=== PATIENT | female | born 1955 | race Caucasian/White ===

== ENCOUNTER 2018-06-14 20:01 | Emergency (ER) | payer MEDICARE, OTHER ==
[2018-06-14 20:23] VITALS: TEMP 98.8
[2018-06-14] MEDS ORDERED: KETOROLAC TROMETHAMINE INJ 30 MG/ML VIAL IM ONE (20:51)
--- NOTE | 2018-06-14 20:53 | RAD ---
EXAM DESCRIPTION: Wrist,Left 3 Views CLINICAL HISTORY: wooden rack fell on wrist COMPARISON: None FINDINGS: 3 view(s) submitted. No fracture or dislocation is identified. Bone marrow attenuation is unremarkable. No radiopaque foreign body is identified. IMPRESSION: No acute fracture or dislocation. Electronically signed by: Robert Daniel 06/14/2018 8:52 PM [facility]
--- NOTE | 2018-06-14 20:55 | ED.PDOC ---
History of Present Illness - General Chief Complaint: Upper Extremity Injury Stated Complaint: wooden rack fell on left wrist Time Seen by Provider: 06/14/18 20:51 Source: patient, family Exam Limitations: no limitations - History of Present Illness Initial Comments: Patient was helping move a wall bracket when it fell and struck her left wrist. She has pain just proximal to the left wrist on the lateral aspect. It is constant, non-radiating, throbbing, worse with movement, better with rest, denies previous episodes. No other injuries nor symptoms. Timing/Duration: 1-3 hours Severity: moderate Improving Factors: rest Worsening Factors: movement Associated Symptoms: denies symptoms Allergies/Adverse Reactions: Allergies Penicillins Allergy (Verified 06/14/18 20:20) Review of Systems - Review of Systems Constitutional: States: no symptoms reported EENTM: States: no symptoms reported Respiratory: States: no symptoms reported Cardiology: States: no symptoms reported Gastrointestinal/Abdominal: States: no symptoms reported Genitourinary: States: no symptoms reported Musculoskeletal: States: see HPI Skin: States: no symptoms reported Neurological: States: no symptoms reported Endocrine: States: no symptoms reported Past Medical History (General) - Patient Medical History Hx Seizures: No Hx Stroke: Yes Hx Dementia: No Hx Asthma: No Hx of COPD: No Hx Cardiac Disorders: No Hx Congestive Heart Failure: No Hx Pacemaker: No Hx Hypertension: Yes Hx Thyroid Disease: No Hx Diabetes: No Hx Gastroesophageal Reflux: Yes Hx Renal Disease: No Hx Cancer: No Hx of HIV: No Hx Hepatitis C: No Hx MRSA: No Surgical History: appendectomy, cholecystectomy, Hysterectomy - Vaccination History Hx Tetanus, Diphtheria Vaccination: No Hx Influenza Vaccination: No Hx Pneumococcal Vaccination: No - Social History Hx Tobacco Use: Yes - quit in 2009 Hx Alcohol Use: No Family Medical History - Family History Mother Family History: Unknown Physical Exam - Physical Exam General Appearance: Alert Respiratory: lungs clear Cardiovascular/Chest: normal peripheral pulses, regular rate, rhythm Peripheral Pulses: radial,right: 2+, radial,left: 2+ Gastrointestinal/Abdominal: normal bowel sounds, non tender, soft Extremity: other - TTP over distal lateral third of the left forearm over the radius. Patient has 5/5 movement of the fingers but movement of the wrist is not possible due to pain. There is mild edema at the focus of pain. Neurologic: no motor/sensory deficits, alert, normal mood/affect, oriented x 3 Skin Exam: normal color Lymphatic: no adenopathy Progress - Progress Progress: 06/14/18 21:46 Radiographs showed no dislocation nor fracture. Patient was given a wrist splint. Care instructions given. E.R. warnings given. Questions were elicited and answered. Patient voiced understanding and agreement with the plan. Departure - Departure Clinical Impression: Sprain of wrist, left Disposition: Discharge to Home or Self Care Condition: Good Departure Forms: ED Discharge - Pt. Copy, Patient Portal Self Enrollment Instructions: Wrist Sprain (DC) Diet: resume usual diet Activity: increase activity as tolerated Additional Instructions: Ice to the painful area three times per day and as needed for three days. Change to heating pad to the painful area twice per day after three days until healed. Return to activity as tolerated.
[2018-06-14 21:59] VITALS: BP 144/84; O2SAT 96
== END 2018-06-14 21:58 | disposition home or self-care (01) ==
LOC: ER 20:01
DX: S63.502A Unspecified sprain of left wrist, initial encounter (principal); I10 Essential (primary) hypertension; K21.9 Gastro-esophageal reflux disease without esophagitis; Z86.73 Personal history of transient ischemic attack (TIA), and cerebral infarction without residual deficits; W20.8XXA Other cause of strike by thrown, projected or falling object, initial encounter; Z87.891 Personal history of nicotine dependence; Z88.0 Allergy status to penicillin; Y92.9 Unspecified place or not applicable
CPT/HCPCS: 73110; J1885

== ENCOUNTER → 2018-06-15 | Outpatient (CLI) | payer OTHER ==
--- NOTE | 2018-06-15 09:34 | RAD ---
EXAM DESCRIPTION: Pelvis CLINICAL HISTORY: M25.551 COMPARISON: None. TECHNIQUE: AP pelvis FINDINGS: The pelvis is intact. No fracturing is detected. Mild degenerative changes are seen in the pubic symphysis. The proximal femurs are intact. Phleboliths are observed in the right side of the pelvis. Minimal vascular calcification is noted. IMPRESSION: Unremarkable pelvis. Electronically signed by: Inocencio Cormier MD 06/15/2018 9:33 AM [facility]
== END ==
LOC: RAD 08:28
PROVIDERS: ATTEND Orthopaedic Surgery
DX: M25.551 Pain in right hip (principal)

== ENCOUNTER 2018-07-26 12:08 | Emergency (ER) | payer OTHER ==
--- NOTE | 2018-07-26 12:49 | ED.PDOC ---
History of Present Illness - General Chief Complaint: Neck Injury/Pain Stated Complaint: Neck and shoulder discomfort Time Seen by Provider: 07/26/18 12:41 Source: patient Exam Limitations: no limitations - History of Present Illness Initial Comments: Patient presents with upper back pain after a fall two weeks ago. She tripped on a metal water meter cover and landed on her back. The pain is just lateral to the first 4 thoracic vertebrae. Aching in nature. Non-radiating. Worse with movement, better with rest. No associated symptoms. No previous injuries to that area. No other complaints. Timing/Duration: other - three weeks Severity: mild Improving Factors: rest Worsening Factors: movement Associated Symptoms: denies symptoms Allergies/Adverse Reactions: Allergies Penicillins Allergy (Verified 07/26/18 12:33) Home Medications: Ambulatory Orders Donepezil Hydrochloride [Donepezil HCl] 5 mg PO DAILY 06/14/18 Tramadol HCl 50 mg PO Q6H PRN 06/14/18 Zolpidem Tartrate 10 mg PO BEDTIME 06/14/18 cloNAZepam [Klonopin] 0.5 mg PO DAILY PRN 06/14/18 Escitalopram [Lexapro] 20 mg PO DAILY 07/26/18 Montelukast [Singulair] 10 mg PO DAILY 07/26/18 Trazodone HCl 100 mg PO BEDTIME 07/26/18 Review of Systems - Review of Systems Constitutional: States: no symptoms reported EENTM: States: no symptoms reported Respiratory: States: no symptoms reported Cardiology: States: no symptoms reported Gastrointestinal/Abdominal: States: no symptoms reported Genitourinary: States: no symptoms reported Musculoskeletal: States: see HPI Skin: States: no symptoms reported Neurological: States: no symptoms reported Endocrine: States: no symptoms reported Hematologic/Lymphatic: States: no symptoms reported Past Medical History (General) - Patient Medical History Hx Seizures: No Hx Stroke: Yes - 2009 Hx Dementia: No Hx Asthma: No Hx of COPD: No Hx Cardiac Disorders: No Hx Congestive Heart Failure: No Hx Pacemaker: No Hx Hypertension: Yes Hx Thyroid Disease: No Hx Diabetes: No Hx Gastroesophageal Reflux: Yes Hx Renal Disease: No Hx Cancer: No Hx of HIV: No Hx Hepatitis C: No Hx MRSA: No Surgical History: appendectomy, cholecystectomy, tonsillectomy, Hysterectomy, other - Vaccination History Hx Tetanus, Diphtheria Vaccination: No Hx Influenza Vaccination: No Hx Pneumococcal Vaccination: No - Social History Hx Tobacco Use: Yes - Quit 2009 Hx Alcohol Use: No Family Medical History - Family History Mother Family History: Unknown Physical Exam - Physical Exam General Appearance: Alert Eye Exam: bilateral normal Ears, Nose, Throat: normal ENT inspection Neck: non-tender, full range of motion, supple Respiratory: lungs clear, normal breath sounds Cardiovascular/Chest: normal peripheral pulses, regular rate, rhythm Gastrointestinal/Abdominal: normal bowel sounds, non tender, soft Back Exam: other - TTP 3 cm lateral to the third-5th thoracic verebrae. 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3 H Eosinophils % 3.9 Basophils % 1.4 PT 12.0 H INR 1.20 H PTT (SP) 33.6 H Sodium 138 Potassium 3.1 L Chloride 100 L Carbon Dioxide 29 Anion Gap 12.1 BUN 6 L Creatinine 0.83 BUN/Creatinine Ratio 7.2 L Random Glucose 112 H Serum Osmolality 274.0 L Calcium 9.1 Total Bilirubin 0.7 AST 31 ALT 25 Alkaline Phosphatase 106 Serum Total Protein 8.4 H Albumin 3.8 Globulin 4.6 H Albumin/Globulin Ratio 0.[address] showed anterolithesis and retrolithesis of the cervical vertebrae that are probably chronic. No fractures. There was occipital attenuation on the cervical CT so a head CT was performed to rule out acute bleed or recent CVA. There were old CVAs. Neurological exam was normal. GCS 15. Patient's pain improved with Norflex 60 mg IM x one and Toradol 30 mg IM x one. Her potassium was 3.1 so she was given 20 meq po x one. She has an appointment with her pcp in the morning and will inquire about further use of muscle relaxants and potassiu m. Care instructions given. E.R. warnings given. Questions were elicited and answered. The patient voiced understanding and agreement with the plan. Departure - Departure Clinical Impression: Upper back pain, Hypokalemia Disposition: Discharge to Home or Self Care Condition: Good Departure Forms: ED Discharge - Pt. Copy, Patient Portal Self Enrollment Instructions: DI for Neck Pain Diet: resume usual diet Activity: increase activity as tolerated Referrals: OZIEL DUNBAR IV, [employer] [Primary Care Provider] - 1-2 Weeks Home Medications: Ambulatory Orders Donepezil Hydrochloride [Donepezil HCl] 5 mg PO DAILY 06/14/18 Tramadol HCl 50 mg PO Q6H PRN 06/14/18 Zolpidem Tartrate 10 mg PO BEDTIME 06/14/18 cloNAZepam [Klonopin] 0.5 mg PO DAILY PRN 06/14/18 Escitalopram [Lexapro] 20 mg PO DAILY 07/26/18 Montelukast [Singulair] 10 mg PO DAILY 07/26/18 Trazodone HCl 100 mg PO BEDTIME 07/26/18 Additional Instructions: Keep your appointment with your regular doctor in the morning. Ask about future use of muscle relaxants and potassium supplements. Apply heat to the painful area twice per day until healed. Return to your regular doctor if pain lasts more than two weeks.
--- NOTE | 2018-07-26 13:52 | RAD ---
EXAM DESCRIPTION: Thoracic Spine w/Obliques CLINICAL HISTORY: pain after fall COMPARISON: None FINDINGS: Five view(s) submitted. No fracture or dislocation is identified. Bone marrow attenuation is unremarkable. No radiopaque foreign body is identified. IMPRESSION: No acute fracture or dislocation. Electronically signed by: Robert Daniel 07/26/2018 1:49 PM [facility]
--- NOTE | 2018-07-26 13:54 | RAD ---
PROCEDURE: XR Cervical Spine, 4 or 5 Views CLINICAL INDICATION: The patient is 63 years years old, Female; pain after fall TECHNIQUE: Frontal, lateral and oblique views of the cervical spine. COMPARISON: No relevant prior studies available. FINDINGS: VERTEBRAE: There is mild reversal of the cervical lordosis centered at C5 associated with approximately 3 mm of anterolisthesis of C4 relative to C5, chronicity uncertain. There is no evidence of acute fracture, dislocation or osseous destruction. Vertebral body heights are maintained. DISC SPACES AND NEURAL FORAMINA: There is moderate facet arthropathy on the left at C4-5. There is moderate narrowing of the disc spaces at C5-6 and C6-7 with ossification in the anterior longitudinal ligament suggesting diffuse idiopathic skeletal hyperostosis as well as degenerative disc disease. Other disc heights are maintained Suspect severe neural foraminal encroachment on the left at C3-4, C4-5 and C5-6. SOFT TISSUES: The prevertebral soft tissues are normal. The prevertebral soft tissues are normal. DENTAL: The maxilla is edentulous and only the incisors, canines and lower right bicuspid remain in the mandible. LUNG APICES: The lung apices are clear. OTHER FINDINGS: None Visualized maxillary sinuses and mastoids appear clear. IMPRESSION: There is mild reversal of the cervical lordosis centered at C5 associated with approximately 3 mm of anterolisthesis of C4 relative to C5, chronicity uncertain. CT cervical spine is recommended if clinically indicated. Electronically signed by: More Oro MD 07/26/2018 1:51 PM [employer]
[2018-07-26] MEDS ORDERED: KETOROLAC TROMETHAMINE INJ 30 MG/ML VIAL IM ONE (14:29)
[2018-07-26] MEDS ORDERED: ORPHENADRINE CITRATE 30 MG/ML AMP IM ONE (14:29)
--- NOTE | 2018-07-26 14:52 | CT ---
PROCEDURE: Thoracic Spine CLINICAL HISTORY: 63 years ,Female ,pain at T4-7 COMPARISON: None. TECHNIQUE: Contiguous axial images obtained through the thoracic spine without IV contrast. Coronal and sagittal reformatted images obtained. This exam was performed according to our department optimization program which includes automated exposure control, adjustment of the mA and/or kv according to patient size and/or use of iterative reconstruction technique. FINDINGS: There are degenerative changes diffusely, mild. Multilevel posterior disc osteophyte complexes are present. These are mild to moderate. Vertebral body alignment unremarkable. No acute thoracic spine fractures. IMPRESSION: No acute thoracic spinal fracture is identified. . Electronically signed by: Robert Daniel 07/26/2018 2:49 PM [facility]
--- NOTE | 2018-07-26 15:02 | CT ---
EXAM DESCRIPTION: CT CERVICAL SPINE CLINICAL HISTORY: questionable findings on plain radiographs COMPARISON: Plain films same day. TECHNIQUE: Contiguous axial images of the cervical spine were obtained followed by reconstruction images.This exam was performed according to our departmental dose-optimization program, which includes automated exposure control, adjustment of the mA and/or kV according to patient size and/or use of iterative reconstruction technique. FINDINGS: There is poorly defined decreased attenuation in the right occipital lobe medial aspect, but detail is limited. There are bony degenerative changes. Reversal of the normal lordotic curvature of the mid cervical spine is again seen. There is anterior subluxation of the right mandibular condylar head. No prevertebral soft tissue swelling. There are small amounts of gas throughout the esophagus. There is grade 1 anterolisthesis of C4 on C5 and grade 1 retrolisthesis of C5 on C6. There is moderate height loss of the C3-4 and C5-6 and C6-7 discs. There is no acute fracture or subluxation. IMPRESSION: Encephalomalacia/decreased attenuation in the right occipital lobe but detail is limited. No acute fracture or subluxation. Electronically signed by: Robert Daniel 07/26/2018 2:59 PM [facility]
--- NOTE | 2018-07-26 16:13 | CT ---
EXAM DESCRIPTION: CT Head, noncontrast CLINICAL HISTORY: 63 years Female fall, on Plavix for prior CVA COMPARISON: None TECHNIQUE: Noncontrast axial scans of the brain were obtained. Sagittal and coronal reformatted images were performed. This exam was performed according to our departmental dose-optimization program, which includes automated exposure control, adjustment of the mA and/or kV according to patient size and/or use of iterative reconstruction technique. FINDINGS: There is no evidence of acute intracranial hemorrhage, extracerebral fluid collection, hydrocephalus, midline shift, obvious mass effect, or major territorial infarction. There is slight scattered prominence of cortical sulci and the sylvian fissures. A small area of decreased attenuation is noted in the medial right occipital lobe, consistent with an old infarct. There also appears to be a tiny hypodensity consistent with an old infarct in the anterior left thalamic region. Fernandes-white distinction is generally preserved. There are vascular calcifications at the base of the brain. The bony calvarium appears intact, with perhaps mild hyperostosis frontalis interna. Visualized paranasal sinuses and mastoid air cells appear clear. The frontal sinuses are hypoplastic. IMPRESSION: No evidence of acute intracranial hemorrhage. 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
[2018-07-26] MEDS ORDERED: POTASSIUM CHLORIDE 20 MEQ TAB PO ONE (17:08)
[2018-07-26 17:36] VITALS: BP 147/76; TEMP 97.2; O2SAT 95
== END 2018-07-26 17:35 | disposition home or self-care (01) ==
LOC: ER 12:08
DX: M54.6 Pain in thoracic spine (principal); E87.6 Hypokalemia; R93.7 Abnormal findings on diagnostic imaging of other parts of musculoskeletal system; M47.812 Spondylosis without myelopathy or radiculopathy, cervical region; I10 Essential (primary) hypertension; K21.9 Gastro-esophageal reflux disease without esophagitis; Z86.73 Personal history of transient ischemic attack (TIA), and cerebral infarction without residual deficits; Z87.891 Personal history of nicotine dependence
CPT/HCPCS: 36415; 70450; 72050; 72072; 72125; 72128; 80053; 85025; 85610; 85730; J1885; J2360

== ENCOUNTER → 2019-02-23 | Outpatient (CLI) | payer OTHER ==
--- NOTE | 2019-02-24 08:20 | US ---
EXAM DESCRIPTION: Carotid Duplex CLINICAL HISTORY: OCCLUSIVE DISEASE COMPARISON: None Available. TECHNIQUE: Carotid Doppler ultrasound FINDINGS: Right Submitted images show moderate calcified plaque at the right carotid bifurcation. The following flow velocities were obtained: Common carotid artery peak systolic flow velocity measures 63 centimeters per second. Internal carotid artery peak systolic flow velocity measures 64-79 centimeters per second. External carotid artery peak systolic flow velocity measures 147 centimeters per second. This would indicate mild to moderate proximal stenosis. Flow in the right vertebral artery is antegrade. The right internal carotid to common carotid peak systolic flow velocity ratio equals 1.3 which is normal. Left Submitted images show calcified plaque in the upper left CCA and at the left carotid bifurcation. The following flow velocities were obtained: Common carotid artery peak systolic flow velocity measures 80 centimeters per second. Internal carotid artery peak systolic flow velocity measures 49-67 centimeters per second. External carotid artery peak systolic flow velocity measures 129 centimeters per second. This is consistent with mild proximal stenosis. Flow in the left vertebral artery is antegrade. The left internal carotid to common carotid peak systolic flow velocity ratio of 0.8 is normal. IMPRESSION: Elevated flow velocities in the external carotid arteries bilaterally consistent with mild to moderate proximal stenoses. No significant flow velocity elevation in the right or left common carotid or internal carotid arteries. Antegrade flow in the vertebral arteries. Electronically signed by: Kael Ramírez MD 02/24/2019 8:18 AM CDT
== END ==
LOC: US 11:14
PROVIDERS: ATTEND Internal Medicine Interventional Cardiology
DX: I65.23 Occlusion and stenosis of bilateral carotid arteries (principal)

== ENCOUNTER 2019-03-26 18:49 | Emergency (ER) | payer OTHER ==
[2019-03-26] MEDS ORDERED: ASPIRIN TABLET 325 MG TAB PO ONE (19:04)
[2019-03-26] MEDS ORDERED: ALUM & MAG HYDROX-SIMETHICONE 30 ML, LIDOCAINE VISCOUS 2% 15 ML PO ONE ×2 (19:04)
[2019-03-26] MEDS ORDERED: HYDROcodone 5MG/APAP 325MG 1 EA TAB PO ONE (19:04)
[2019-03-26] MEDS ORDERED: LIDOCAINE HCL 2% (MOUTH-THROAT) 15 ML UD ONE (19:11)
[2019-03-26] MEDS ORDERED: ALUM & MAG HYDROX-SIMETHICONE 30 ML UD ONE (19:11)
[2019-03-26 19:26] VITALS: TEMP 98.2; O2SAT 97
[2019-03-26] MEDS ORDERED: POTASSIUM CHLORIDE ELIXIR 20 MEQ/15 ML UD PO ONE (20:13)
--- NOTE | 2019-03-26 20:13 | RAD ---
EXAM DESCRIPTION: Chest,2 Views CLINICAL HISTORY: 64 years Female chest pain 24 hours COMPARISON: None TECHNIQUE: Two view study of the chest was performed. FINDINGS: Cardiac size is within normal limits. Central vessels are not increased. No infiltrates or effusions seen. No consolidation. No pneumothorax. IMPRESSION: No active disease. Electronically signed by: Philomena Ayers MD 03/26/2019 8:11 PM CDT
--- NOTE | 2019-03-26 20:20 | ED.PDOC ---
History of Present Illness - General Chief Complaint: Chest Pain/[place] Stated Complaint: chest pains Time Seen by Provider: 03/26/19 19:03 Source: patient Exam Limitations: no limitations - History of Present Illness Initial Comments: the patient is a 64-year-old female presenting to the emergency room secondary to chest pain that is essentially the left sternal border present for the last 24 hours. He has made a little bit worse with movement. It is completely reproduced with palpation. No shortness of breath. No palpitations. It is not made worse with aerobic activity. No history of any cardiac problems. No syncope or near syncope. No palpitations. She does have long-standing history of gastritis. Timing/Duration: 24 hours Severity: moderate Improving Factors: immobilization Worsening Factors: movement, other - palpation Associated Symptoms: chest pain Allergies/Adverse Reactions: Allergies Penicillins Allergy (Verified 07/26/18 12:33) Home Medications: Ambulatory Orders Donepezil Hydrochloride [Donepezil HCl] 5 mg PO DAILY 06/14/18 Tramadol HCl 50 mg PO Q6H PRN 06/14/18 Zolpidem Tartrate 10 mg PO BEDTIME 06/14/18 cloNAZepam [Klonopin] 0.5 mg PO DAILY PRN 06/14/18 Escitalopram [Lexapro] 20 mg PO DAILY 07/26/18 Montelukast [Singulair] 10 mg PO DAILY 07/26/18 Trazodone HCl 100 mg PO BEDTIME 07/26/18 Acetaminophen W/ Codeine [Tylenol W/ CODEINE #3] 1 ea PO Q8HR PRN #6 10/25/18 Tobramycin Sulf 0.3 % Opht Eva [Tobrex Opthalmic Solution] 0.3 % RIGHT_EYE Q4HR 5 Days #1 bttl 10/25/18 Review of Systems - Review of Systems Constitutional: States: no symptoms reported EENTM: States: no symptoms reported Respiratory: States: no symptoms reported Cardiology: States: chest pain Gastrointestinal/Abdominal: States: no symptoms reported Genitourinary: States: no symptoms reported Musculoskeletal: States: no symptoms reported Skin: States: no symptoms reported Neurological: States: no symptoms reported Endocrine: States: no symptoms reported All other Systems: No Change from Baseline Past Medical History (General) - Patient Medical History Hx Seizures: No Hx Stroke: Yes - 2009 Hx Dementia: No Hx Asthma: No Hx of COPD: No Hx Cardiac Disorders: No Hx Congestive Heart Failure: No Hx Pacemaker: No Hx Hypertension: Yes Hx Thyroid Disease: No Hx Diabetes: No Hx Gastroesophageal Reflux: Yes Hx Renal Disease: No Hx Cancer: No Hx of HIV: No Hx Hepatitis C: No Hx MRSA: No Surgical History: appendectomy, cholecystectomy, tonsillectomy, other - Vaccination History Hx Tetanus, Diphtheria Vaccination: No Hx Influenza Vaccination: No Hx Pneumococcal Vaccination: No - Social History Hx Tobacco Use: No Hx Alcohol Use: No Hx Substance Use: No Hx Substance Use Treatment: No Hx Depression: No - Female History Patient : No Family Medical History - Family History Mother Family History: Unknown Physical Exam - Physical Exam General Appearance: Alert, Comfortable, No apparent distress Eye Exam: bilateral normal Ears, Nose, Throat: hearing grossly normal, normal ENT inspection Neck: full range of motion, supple Respiratory: lungs clear, normal breath sounds, no respiratory distress, no accessory muscle use, other - chest wall is tender to the left sternal border. 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 It has been present and constant for the last 24 hours, and is reproducible with palpation. This appears to be musculoskeletal in nature. EKG, lab work and chest x-ray are reassuring. The patient can use Motrin with food 2-3 times daily for the next few days. Topical heat may also help. Stretching exercises may also help. I do want her to follow-up with her primary care doctor in 3-5 days for reevaluation. ER warnings were given. john patel [id number] - Results/Orders Results/Orders: 03/26/19 19:03 EKG showed normal sinus rhythm at 61 bpm. Normal axis. Normal R-wave progression. No ST segment or T-wave changes indicative of acute ischemia. Normal QT interval. Chest x-ray shows no acute pathology. Laboratory Results - last 24 hr 03/26/19 03/26/19 03/26/19 19:05 19:05 19:05 WBC 8.9 RBC 4.71 Hgb 13.8 Hct 40.8 MCV 86.6 MCH 29.3 MCHC 33.8 RDW 13.8 Plt Count 237 MPV 8.6 Absolute Neuts (auto) 3.60 Absolute Lymphs (auto) 4.20 H Absolute Monos (auto) 0.70 Absolute Eos (auto) 0.30 Absolute Basos (auto) 0.10 Neutrophils % 40.1 L Lymphocytes % 47.0 Monocytes % 8.2 Eosinophils % 3.3 Basophils % 1.4 PT 12.1 H INR 1.21 H PTT (SP) 29.8 Sodium 141 Potassium 3.3 L Chloride 104 Carbon Dioxide 25 Anion Gap 15.3 BUN 6 L Creatinine 0.78 BUN/Creatinine Ratio 7.7 L Random Glucose 98 Serum Osmolality 278.8 Calcium 8.9 Magnesium 1.9 Total Bilirubin 0.6 AST 28 ALT 19 Alkaline Phosphatase 88 Creatine Kinase 42 CK-MB (CK-2) 0.6 Troponin I < 0.02 B-Natriuretic Peptide 17.2 Serum Total Protein 7.5 Albumin 3.9 Globulin 3.6 H Albumin/Globulin Ratio 1.1 Departure - Departure Clinical Impression: Musculoskeletal chest pain Disposition: Discharge to Home or Self Care Condition: Fair Departure Forms: ED Discharge - Pt. Copy, Patient Portal Self Enrollment Instructions: Chest Pain That Is Not Caused by the Heart (DC) Diet: regular diet Activity: increase activity as tolerated Referrals: OZIEL DUNBAR IV, POWER BRAKE OPERATOR [Primary Care Provider] - 1-2 Weeks Home Medications: Ambulatory Orders Donepezil Hydrochloride [Donepezil HCl] 5 mg PO DAILY 06/14/18 Tramadol HCl 50 mg PO Q6H PRN 06/14/18 Zolpidem Tartrate 10 mg PO BEDTIME 06/14/18 cloNAZepam [Klonopin] 0.5 mg PO DAILY PRN 06/14/18 Escitalopram [Lexapro] 20 mg PO DAILY 07/26/18 Montelukast [Singulair] 10 mg PO DAILY 07/26/18 Trazodone HCl 100 mg PO BEDTIME 07/26/18 Acetaminophen W/ Codeine [Tylenol W/ CODEINE #3] 1 ea PO Q8HR PRN #6 10/25/18 Tobramycin Sulf 0.3 % Opht Eva [Tobrex Opthalmic Solution] 0.3 % RIGHT_EYE Q4HR 5 Days #1 bttl 10/25/18 Additional Instructions: the patient's a 64-year-old female presenting to the emergency room with left parasternal chest pain. It has been present and constant for the last 24 hours, and is reproducible with palpation. This appears to be musculoskeletal in nature. EKG, lab work and chest x-ray are reassuring. The patient can use Motrin with food 2-3 times daily for the next few days. Topical heat may also help. Stretching exercises may also help. I do want her to follow-up with her primary care doctor in 3-5 days for reevaluation. ER warnings were given.
[2019-03-26 20:35] VITALS: BP 153/90
== END 2019-03-26 20:36 | disposition home or self-care (01) ==
LOC: ER 18:49
DX: R07.89 Other chest pain (principal); I10 Essential (primary) hypertension; K21.9 Gastro-esophageal reflux disease without esophagitis; Z86.73 Personal history of transient ischemic attack (TIA), and cerebral infarction without residual deficits; Z79.899 Other long term (current) drug therapy; Z88.0 Allergy status to penicillin

== ENCOUNTER 2019-10-10 19:16 | Emergency (ER) | payer OTHER ==
[2019-10-10 19:38] VITALS: O2SAT 99
[2019-10-10] MEDS ORDERED: CLINDAMYCIN PHOSPHATE 150 MG/ML VIAL IM ONE (19:50)
[2019-10-10] MEDS ORDERED: CLINDAMYCIN HCL CAP (ER DISP) 150 MG CAP PO ONE (19:50)
[2019-10-10] MEDS ORDERED: ONDANSETRON ODT 8 MG TAB SL ONE (19:53)
[2019-10-10] MEDS ORDERED: HYDROcodone 5MG/APAP 325MG 1 EA TAB PO ONE (19:54)
--- NOTE | 2019-10-10 20:25 | ED.PDOC ---
History of Present Illness - General Chief Complaint: Dental/Mouth Stated Complaint: bottom left mouth pain Time Seen by Provider: 10/10/19 19:28 Source: patient, RN notes reviewed, Vital Signs reviewed, family - HusbandHusband Exam Limitations: no limitations - History of Present Illness Initial Comments: Patient is a 64-year-old white female who presents with complaints of left lower jaw pain and swelling. This is been ongoing x1 day. The pain is throbbing in nature. Is moderate in intensity. Is worse with cold liquids or trying to chew. Better with warm liquid. It is nonradiating. It is worse with palpation. Timing/Duration: abrupt, yesterday Severity: moderate EENT Location: mouth Prearrival Treatment: no prearrival treatment Improving Factors: other - Warm fluid Worsening Factors: cold therapy, other - Palpation Associated Symptoms: facial pain/swelling, poor fluid intake, poor solids intake Allergies/Adverse Reactions: Allergies Penicillins Allergy (Verified 10/10/19 19:38) Home Medications: Ambulatory Orders Donepezil Hydrochloride [Donepezil HCl] 5 mg PO DAILY 06/14/18 Tramadol HCl 50 mg PO Q6H PRN 06/14/18 Zolpidem Tartrate 10 mg PO BEDTIME 06/14/18 cloNAZepam [Klonopin] 0.5 mg PO DAILY PRN 06/14/18 Escitalopram [Lexapro] 20 mg PO DAILY 07/26/18 Montelukast [Singulair] 10 mg PO DAILY 07/26/18 Trazodone HCl 100 mg PO BEDTIME 07/26/18 Acetaminophen W/ Codeine [Tylenol W/ CODEINE #3] 1 ea PO Q8HR PRN #6 10/25/18 Tobramycin Sulf 0.3 % Opht Eva [Tobrex Opthalmic Solution] 0.3 % RIGHT_EYE Q4HR 5 Days #1 bttl 10/25/18 Acetaminophen W/ Codeine [Tylenol W/ CODEINE #3] 1 ea PO Q6H #6 10/10/19 Clindamycin HCl [Clindamycin Hydrochloride] 300 mg PO Q6H #28 cap 10/10/19 Review of Systems - Review of Systems Constitutional: States: no symptoms reported, see HPI. Denies: chills, fever EENTM: States: see HPI, mouth pain, mouth swelling Respiratory: States: no symptoms reported Cardiology: States: no symptoms reported Gastrointestinal/Abdominal: States: no symptoms reported Genitourinary: States: no symptoms reported Musculoskeletal: States: no symptoms reported Skin: States: no symptoms reported Neurological: States: anxiety Endocrine: States: no symptoms reported Hematologic/Lymphatic: States: no symptoms reported All other Systems: No Change from Baseline Past Medical History (General) - Patient Medical History Hx Seizures: No Hx Stroke: Yes - 2009 Hx Dementia: No Hx Asthma: No Hx of COPD: No Hx Cardiac Disorders: Yes - "weak heart" Hx Congestive Heart Failure: No Hx Pacemaker: No Hx Hypertension: Yes Hx Thyroid Disease: No Hx Diabetes: No Hx Gastroesophageal Reflux: Yes Hx Renal Disease: No Hx Cancer: No Hx of HIV: No Hx Hepatitis C: No Hx MRSA: No Surgical History: appendectomy, cholecystectomy, tonsillectomy, Hysterectomy - Vaccination History Hx Tetanus, Diphtheria Vaccination: No Hx Influenza Vaccination: No Hx Pneumococcal Vaccination: No - Social History Hx Tobacco Use: No Hx Alcohol Use: No Hx Substance Use: No Hx Substance Use Treatment: No Hx Depression: No - Female History Patient : No Family Medical History - Family History Mother Family History: Unknown Physical Exam - Physical Exam General Appearance: Alert, Anxious, Obvious distress, Unkempt, Well Developed, Well Hydrated, Well Nourished Eye Exam: bilateral normal Ear Exam: bilateral ear: auricle normal Nasal Exam: normal inspection Throat Exam: dental tenderness, mandibular swelling - Left Neck: non-tender, full range of motion, supple, normal inspection Cardiovascular/Respiratory: regular rate, rhythm, no M/R/G, normal peripheral pulses, no JVD, normal breath sounds Abdominal Exam: non-tender, no organomegaly 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 Progress - Progress Progress: Differential diagnosis: Dental abscess, facial cellulitis, impacted tooth, jaw fracture among others. 10/10/19 20:29 Patient improved after the pain medicine and taking her home anxiety medications. Patient with presumed oral abscess. Patient started on IM clindamycin and p.o. clindamycin. Plan on discharge home with prescriptions for clindamycin and Tylenol with codeine. I discussed this plan of care with the patient and her . They voiced understanding of the need to follow-up with a dentist in the next day or 2. They agree with the plan of care. Matthew Mota M.D. #[id number] Departure - Departure Clinical Impression: Facial cellulitis, Mandible pain, Dental abscess Time of Disposition: 20:31 Disposition: Discharge to Home or Self Care Condition: Good Departure Forms: ED Discharge - Pt. Copy, Patient Portal Self Enrollment Instructions: DI for Mouth Pain, Tooth Abscess (DC), Cellulitis (Skin Infection), Adult (DC) Diet: full liquid diet Activity: increase activity as tolerated Referrals: OZIEL DUNBAR IV, INTELLIGENCE [employer]S [Primary Care Provider] - 1-5 Days Prescriptions: Acetaminophen W/ Codeine [Tylenol W/ CODEINE #3] 1 ea PO Q6H #6 Clindamycin HCl [Clindamycin Hydrochloride] 300 mg PO Q6H #28 cap Home Medications: Ambulatory Orders Donepezil Hydrochloride [Donepezil HCl] 5 mg PO DAILY 06/14/18 Tramadol HCl 50 mg PO Q6H PRN 06/14/18 Zolpidem Tartrate 10 mg PO BEDTIME 06/14/18 cloNAZepam [Klonopin] 0.5 mg PO DAILY PRN 06/14/18 Escitalopram [Lexapro] 20 mg PO DAILY 07/26/18 Montelukast [Singulair] 10 mg PO DAILY 07/26/18 Trazodone HCl 100 mg PO BEDTIME 07/26/18 Acetaminophen W/ Codeine [Tylenol W/ CODEINE #3] 1 ea PO Q8HR PRN #6 10/25/18 Tobramycin Sulf 0.3 % Opht Eva [Tobrex Opthalmic Solution] 0.3 % RIGHT_EYE Q4HR 5 Days #1 bttl 10/25/18 Acetaminophen W/ Codeine [Tylenol W/ CODEINE #3] 1 ea PO Q6H #6 10/10/19 Clindamycin HCl [Clindamycin Hydrochloride] 300 mg PO Q6H #28 cap 10/10/19
[2019-10-10 20:50] VITALS: BP 144/98; TEMP 98.1
== END 2019-10-10 20:50 | disposition home or self-care (01) ==
LOC: ER 19:16
DX: L03.211 Cellulitis of face (principal); K04.7 Periapical abscess without sinus; I10 Essential (primary) hypertension

== ENCOUNTER 2020-07-13 21:25 | Emergency (ER) | payer OTHER ==
[2020-07-13] MEDS ORDERED: SODIUM CHLORIDE 0.9% (FLUSH) 10 ML SYG IV PRN (21:37)
[2020-07-13 21:43] VITALS: TEMP 97.2
[2020-07-13] MEDS ORDERED: hydrALAZINE HCl 20 MG/ML VIAL IV ONE (21:53)
[2020-07-13] MEDS ORDERED: ONDANSETRON INJ 4 MG/2 ML VIAL IV ONE (22:04)
--- NOTE | 2020-07-13 22:16 | RAD ---
EXAM DESCRIPTION: XR Chest, 1 View CLINICAL HISTORY: 65 years Female nausea and vomiting TECHNIQUE: One view of the chest. COMPARISON: No prior exams provided for comparison. FINDINGS: The lungs are clear without focal consolidation, effusion, or pneumothorax. The cardiomediastinal silhouette and central pulmonary vasculature are normal. No acute osseous abnormalities. IMPRESSION: No acute cardiopulmonary abnormalities. Electronically signed by: Jazzy Prasad MD 07/13/2020 10:14 PM TECHNICAL RESEARCH SCIENTIST
[2020-07-13 23:16] VITALS: O2SAT 95
--- NOTE | 2020-07-13 23:16 | CT ---
EXAM DESCRIPTION: CT of the head without contrast CLINICAL HISTORY: n/v with elevated bp COMPARISON: 07/16/2018 TECHNIQUE: Axial CT of the head obtained from the skull apex to the skull base without contrast. FINDINGS: No acute intracranial hemorrhage identified. No mass, mass effect, shift of the midline, abnormal extra-axial fluid collection or CT evidence of acute ischemic change identified. The ventricular system and sulcal spaces are nonenlarged. Scattered areas of hypodensity throughout the supratentorial white matter are nonspecific and may be related to chronic small vessel ischemic change. Right occipital encephalomalacia compatible with remote right PATIENT FINANCIAL SERVICES SPECIALIST distribution infarction. Minimal mucosal thickening of the paranasal sinuses. Mastoid air cells are well aerated. No skull fracture identified. Visualized orbits and globes are unremarkable. Atherosclerotic calcification of the intracranial internal carotid arteries. IMPRESSION: 1. No acute intracranial abnormality by CT criteria. This exam was performed according to our departmental dose-optimization program, which includes automated exposure control, adjustment of the mA and/or kV according to patient size and/or use of iterative reconstruction technique. Electronically signed by: Glen Meeks 07/13/2020 11:15 PM [facility]
--- NOTE | 2020-07-13 23:27 | ED.PDOC ---
History of Present Illness - General Chief Complaint: Blood Pressure Problem Stated Complaint: vomiting Time Seen by Provider: 07/13/20 21:36 Source: patient, RN notes reviewed, Vital Signs reviewed, family - son Exam Limitations: no limitations - History of Present Illness Initial Comments: Patient is a 65-year-old white female who presents with complaints of nausea and vomiting as well as high blood pressure. Patient started feeling ill a couple hours prior to arrival here. Patient does have a history of hypertension that is usually well controlled by medication. Patient denies any headache, blurry vision, dizziness. Nothing seems to make the vomiting better or worse. Timing/Duration: 1-3 hours Severity: moderate Improving Factors: nothing Worsening Factors: nothing Associated Symptoms: nausea/vomiting Allergies/Adverse Reactions: Allergies Penicillins Allergy (Verified 02/17/20 14:46) Home Medications: Ambulatory Orders Donepezil Hydrochloride [Donepezil HCl] 5 mg PO DAILY 06/14/18 Tramadol HCl 50 mg PO Q6H PRN 06/14/18 Zolpidem Tartrate 10 mg PO BEDTIME 06/14/18 cloNAZepam [Klonopin] 0.5 mg PO DAILY PRN 06/14/18 Escitalopram [Lexapro] 20 mg PO DAILY 07/26/18 Montelukast [Singulair] 10 mg PO DAILY 07/26/18 Trazodone HCl 100 mg PO BEDTIME 07/26/18 Acetaminophen W/ Codeine [Tylenol W/ CODEINE #3] 1 ea PO Q8HR PRN #6 10/25/18 Tobramycin Sulf 0.3 % Opht Eva [Tobrex Opthalmic Solution] 0.3 % RIGHT_EYE Q4HR 5 Days #1 bttl 10/25/18 Acetaminophen W/ Codeine [Tylenol W/ CODEINE #3] 1 ea PO Q6H #6 10/10/19 Clindamycin HCl [Clindamycin Hydrochloride] 300 mg PO Q6H #28 cap 10/10/19 Review of Systems - Review of Systems Constitutional: States: no symptoms reported, see HPI. Denies: chills, fever, malaise, weakness EENTM: States: no symptoms reported. Denies: eye pain, blurred vision, double vision Respiratory: States: no symptoms reported. Denies: cough, short of breath, stridor Cardiology: States: no symptoms reported. Denies: chest pain, palpitations, syncope Gastrointestinal/Abdominal: States: see HPI Genitourinary: States: no symptoms reported. Denies: dysuria, frequency Musculoskeletal: States: no symptoms reported. Denies: back pain, joint pain, neck pain Skin: States: no symptoms reported. Denies: change in color, rash Neurological: States: no symptoms reported. Denies: headache, tingling, tremors, weakness Endocrine: States: no symptoms reported. Denies: increased hunger, increased thirst, increased urine Hematologic/Lymphatic: States: no symptoms reported. Denies: blood clots, easy bleeding All other Systems: No Change from Baseline Past Medical History (General) - Patient Medical History Hx Seizures: No Hx Stroke: Yes - 2009 Hx Dementia: No Hx Asthma: No Hx of COPD: No Hx Cardiac Disorders: Yes - "weak heart" Hx Congestive Heart Failure: No Hx Pacemaker: No Hx Hypertension: Yes Hx Thyroid Disease: No Hx Diabetes: No Hx Gastroesophageal Reflux: Yes Hx Renal Disease: No Hx Cancer: No Hx of HIV: No Hx Hepatitis C: No Hx MRSA: No - Vaccination History Hx Tetanus, Diphtheria Vaccination: No Hx Influenza Vaccination: No Hx Pneumococcal Vaccination: No - Social History Hx Tobacco Use: No Hx Chewing Tobacco Use: No Hx Alcohol Use: No Hx Substance Use: No Hx Substance Use Treatment: No Hx Depression: No - Female History Patient : No Family Medical History - Family History Mother Family History: Unknown Physical Exam - Physical Exam General Appearance: Alert, Anxious, Well Developed, Well Groomed, Well Hydrated, Well Nourished Eye Exam: bilateral normal Ears, Nose, Throat: hearing grossly normal, normal ENT inspection, normal pharynx Neck: non-tender, full range of motion, supple Respiratory: chest non-tender, lungs clear, normal breath sounds, no respiratory distress Cardiovascular/Chest: normal peripheral pulses, regular rate, rhythm, no edema, no gallop, no JVD, no murmur Peripheral Pulses: radial,right: 2+, radial,left: 2+ Gastrointestinal/Abdominal: normal bowel sounds, non tender, soft, no organomegaly Back Exam: normal inspection, no CVA tenderness, no vertebral tenderness Extremity: normal range of motion, non-tender, normal inspection 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 Laboratory work and x-rays/CT are unremarkable. Plan on discharge home with follow-up with her PCP. Of discussed this plan of care with the patient and her family and they voiced understanding and agreement with the plan of care. Matthew Mota M.D. #[id number] - Results/Orders Results/Orders: EXAM DESCRIPTION: XR Chest, 1 View CLINICAL HISTORY: 65 years Female nausea and vomiting TECHNIQUE: One view of the chest. COMPARISON: No prior exams provided for comparison. FINDINGS: The lungs are clear without focal consolidation, effusion, or pneumothorax. The cardiomediastinal silhouette and central pulmonary vasculature are normal. No acute osseous abnormalities. IMPRESSION: No acute cardiopulmonary abnormalities. Electronically signed by: Jazzy Prasad MD 07/13/2020 10:[address] [facility] EKG performed on 13 July 2020 at 2149 hrs.: Normal sinus rhythm at 71 bpm, normal axis deviation, no ST or T wave changes concerning for ischemia, cannot rule out an anterior infarct, age indeterminate, abnormal EKG. No old EKG available for comparison. 07/13/20 21:37 IV Care:Saline Lock per Protoc QSHIFT Telemetry ONCE Sodium Chloride 0.9% (Flush) [Saline Flush Syringe] 3 ml IV PRN PRN 07/13/20 21:45 EKG STAT 07/14/20 09:00 Pulse Ox Daily Laboratory Results - last 24 hr 07/13/20 07/13/20 07/13/20 21:49 21:49 21:49 WBC 10.9 H RBC 5.18 Hgb 14.9 Hct 43.8 MCV 84.6 MCH 28.8 MCHC 34.0 RDW 13.3 Plt Count 312 MPV 8.3 Absolute Neuts (auto) 5.10 Absolute Lymphs (auto) 4.10 H Absolute Monos (auto) 0.90 H Absolute Eos (auto) 0.40 Absolute Basos (auto) 0.40 H Neutrophils % 46.7 Lymphocytes % 38.0 Monocytes % 7.9 Eosinophils % 3.8 Basophils % 3.6 H PT 11.3 H INR 1.14 PTT (SP) 28.0 Cancelled Sodium 138 Potassium 3.7 Chloride 99 L Carbon Dioxide 28 Anion Gap 14.7 BUN 8 Creatinine 0.71 BUN/Creatinine Ratio 11.3 Random Glucose 113 H Serum Osmolality 274.8 L Calcium 10.1 Magnesium 2.0 Total Bilirubin 0.7 Direct Bilirubin 0.1 Indirect Bilirubin 0.6 AST 25 ALT 22 Alkaline Phosphatase 84 Creatine Kinase 43 CK-MB (CK-2) 0.9 CK-MB (CK-2) % Not Reportable Troponin I < 0.02 B-Natriuretic Peptide 56.7 Serum Total Protein 8.3 H Albumin 4.4 Lipase 38 Urine Color Urine Appearance Urine pH Ur Specific [place] Urine Protein Urine Glucose (UA) Urine Ketones Urine Blood Urine Nitrite Urine Bilirubin Urine Urobilinogen Ur Leukocyte Esterase Urine RBC Urine WBC Ur Epithelial Cells Amorphous Sediment Urine Bacteria 07/13/20 21:57 WBC RBC Hgb Hct MCV MCH MCHC RDW Plt Count MPV Absolute Neuts (auto) Absolute Lymphs (auto) Absolute Monos (auto) Absolute Eos (auto) Absolute Basos (auto) Neutrophils % Lymphocytes % Monocytes % Eosinophils % Basophils % PT INR PTT (SP) Sodium Potassium Chloride Carbon Dioxide Anion Gap BUN Creatinine BUN/Creatinine Ratio Random Glucose Serum Osmolality Calcium Magnesium Total Bilirubin Direct Bilirubin Indirect Bilirubin AST ALT Alkaline Phosphatase Creatine Kinase CK-MB (CK-2) CK-MB (CK-2) % Troponin I B-Natriuretic Peptide Serum Total Protein Albumin Lipase Urine Color Yellow Urine Appearance Clear Urine pH 7.0 Ur Specific [place] 1.020 Urine Protein Negative Urine Glucose (UA) Negative Urine Ketones Negative Urine Blood Negative Urine Nitrite Negative Urine Bilirubin Negative Urine Urobilinogen 0.2 Ur Leukocyte Esterase Negative Urine RBC 0 Urine WBC 0-1 Ur Epithelial Cells 0 Amorphous Sediment Trace Urine Bacteria 0 EXAM DESCRIPTION: CT of the head without contrast CLINICAL HISTORY: n/v with elevated bp COMPARISON: 07/16/2018 TECHNIQUE: Axial CT of the head obtained from the skull apex to the skull base without contrast. FINDINGS: No acute intracranial hemorrhage identified. No mass, mass effect, shift of the midline, abnormal extra-axial fluid collection or CT evidence of acute ischemic change identified. The ventricular system and sulcal spaces are nonenlarged. Scattered areas of hypodensity throughout the supratentorial white matter are nonspecific and may be related to chronic small vessel ischemic change. Right occipital encephalomalacia compatible with remote right UNION REPRESENTATIVE distribution infarction. Minimal mucosal thickening of the paranasal sinuses. Mastoid air cells are well aerated. No skull fracture identified. Visualized orbits and globes are unremarkable. Atherosclerotic calcification of the intracranial internal carotid arteries. IMPRESSION: 1. No acute intracranial abnormality by CT criteria. This exam was performed according to our departmental dose-optimization program, which includes automated exposure control, adjustment of the mA and/or kV according to patient size and/or use of iterative reconstruction technique. Electronically signed by: Glen Meeks 07/13/2020 11:15 PM Vital Signs 07/13/20 07/13/20 07/13/20 21:39 22:18 23:00 Temperature 97.2 F L Pulse Rate 81 81 76 Pulse Rate [ 81 81 76 Left Radial] Respiratory 26 H 18 18 Rate Blood Pressure 174/132 122/89 123/84 [Left Arm] O2 Sat by Pulse 97 96 95 Oximetry Departure - Departure Clinical Impression: Accelerated hypertension Time of Disposition: 23:52 Disposition: Discharge to Home or Self Care Condition: Good Departure Forms: ED Discharge - Pt. Copy, Patient Portal Self Enrollment Instructions: DI for High Blood Pressure, Malignant Hypertension (DC) Diet: low fat, low cholesterol, low salt diet Activity: increase activity as tolerated Referrals: OZIEL DUNBAR IV, BEET FLUMER [Primary Care Provider] - 1-2 Days Home Medications: Ambulatory Orders Donepezil Hydrochloride [Donepezil HCl] 5 mg PO DAILY 06/14/18 Tramadol HCl 50 mg PO Q6H PRN 06/14/18 Zolpidem Tartrate 10 mg PO BEDTIME 06/14/18 cloNAZepam [Klonopin] 0.5 mg PO DAILY PRN 06/14/18 Escitalopram [Lexapro] 20 mg PO DAILY 07/26/18 Montelukast [Singulair] 10 mg PO DAILY 07/26/18 Trazodone HCl 100 mg PO BEDTIME 07/26/18 Acetaminophen W/ Codeine [Tylenol W/ CODEINE #3] 1 ea PO Q8HR PRN #6 10/25/18 Tobramycin Sulf 0.3 % Opht Eva [Tobrex Opthalmic Solution] 0.3 % RIGHT_EYE Q4HR 5 Days #1 bttl 10/25/18 Acetaminophen W/ Codeine [Tylenol W/ CODEINE #3] 1 ea PO Q6H #6 10/10/19 Clindamycin HCl [Clindamycin Hydrochloride] 300 mg PO Q6H #28 cap 10/10/19
[2020-07-14 00:02] VITALS: BP 128/78
== END 2020-07-14 | disposition home or self-care (01) ==
LOC: ER 21:25
DX: I10 Essential (primary) hypertension (principal); R11.2 Nausea with vomiting, unspecified; I51.9 Heart disease, unspecified; Z86.73 Personal history of transient ischemic attack (TIA), and cerebral infarction without residual deficits; K21.9 Gastro-esophageal reflux disease without esophagitis; Z79.899 Other long term (current) drug therapy; Z88.0 Allergy status to penicillin
CPT/HCPCS: 36415; 70450; 71045; 80048; 80076; 81001; 82550; 82553; 83690; 83880; 84484; 85025; 85610; 85730; 93005; J0360; J2405